=== PATIENT | male | born 1945 | race Caucasian/White ===

== ENCOUNTER → 2017-03-06 | Outpatient (CLI) | payer OTHER ==
[~2017-03-06] MED LIST: AZACTAM2 GM IV; CALCIUM; CALCIUM 500 +1 EAC5 PO; DEPO-TESTOS200 MG/M1 IM; DITROPAN5 MG PO; DONEPEZIL HCL10 MG PO; DOXYCYCLINE HY100 M3 PO; ELMIRON100 MG PO; FLAX SEED OIL1000 M1 PO; FUROSEMIDE40 MG PO; HYTRIN PO; KCL PO; LINZESS145 MCG PO; LOPID600 MG PO; LOPRESSOR PO; LOTREL 10/40 MG1 CAP PO; MULTI VITAMIN1 EACH PO; NABUMETONE PO; NAMENDA10 MG PO; NASONEX17 GM; NEURONTIN300 MG PO; OMEPRAZOLE20 M1 PO; OXYCODONE HCL10 MG PO; PERCOCET 10/31 UDTA1 PO; PERCOCET5/325 PO; POTASSIUM; RA ONE DAILY M1 EACH PO; ROPINIROLE HCL1 MG PO; SYNTHROID137 MCG PO; TEMAZEPAM30 MG PO; TIZANIDINE HCL4 M1 PO; TRAMADOL HCL50 M2 PO; TRIAMTERENE-HC1 EACH PO; VANCO 1.751.75 GM/25 IV; VITAMIN D31000 UNIT PO
--- NOTE | ~2017-03-06 | MR165 ---
[facility] A Service of [facility] RADIOLOGY TEXT RESULTS PATIENT: OPAL DE LUNA [facility] UNIT #: [id number] AGE: [address]: Justin Velasquez MD SEX: M ORDER DR: [id number] [facility] [address] [facility] [address] [place], [place] [address] [id number] MR#: [id number] #: [id number] NAME: OPAL DE LUNA : 1945 SEX: M STUDY DATE/TIME: 03/06/2017 12:15 UNIT: [facility] ROOM: STUDY DESCRIPTION: MR Shoulder Wo Contrast Rt Attending Physician: Justin Velasquez M.D. Referring Physician: Justin Velasquez M.D. Ordering Physician: Justin Velasquez M.D. Primary Care Physician: Isaías Mackey M.D. MRI CENTER REPORT This report is preliminary unless electronic signature is present. EXAM MRI of the right shoulder HISTORY 71-year-old male right shoulder pain for over 10 years. No specific trauma. Painful to move in all directions. History of left shoulder replacement, left hip replacement, right knee replacement. FINDINGS Multiplanar multiecho imaging was performed of the right shoulder utilizing a high field magnet and dedicated protocol. There is [id number] AC joint arthropathy with distal clavicular and periarticular edema consistent with an active inflammatory component. Marrow signal within the proximal humerus and glenoid are unremarkable except for enthesopathic or degenerative cyst at the cuff insertion. Joint fluid within normal limits. There is moderate diffuse supraspinatus and infraspinatus tendinopathy with intratendinous cyst seen along the posterior margin of the supraspinatus tendon at the myotendinous junction and also along the posterior aspect of the infraspinatus tendon at the myotendinous junction. These intratendinous cysts are frequently associated with underlying cup pathology. Teres minor tendon appears intact. The subscapularis tendon demonstrates tendinopathy and a partial-thickness articular-sided tear estimated about 9.0 mm in length and involving about 50% of the thickness of the tendon. This is superimposed on mild tendinopathy. No muscle atrophy. There is a small amount of edema along the posterior inferior aspect of the infraspinatus muscle. Superior labrum demonstrates degeneration but no defined tear. The biceps anchor appears intact. The long tendon of the biceps appears intact. Anterior and posterior labrum and extraarticular soft tissues unremarkable. [facility] A Service of [facility] RADIOLOGY TEXT RESULTS PATIENT: OPAL DE LUNA LOCATION: [facility] : 43 UNIT #: [id number] AGE: [address]: Justin Velasquez MD SEX: M ORDER DR: IMPRESSION 1. Moderate diffuse supraspinatus and infraspinatus tendinopathy with intratendinous cysts as detailed above. 2. Partial-thickness articular sided tear of the subscapularis tendon. This is superimposed on mild tendinopathy. 3. Nonspecific edema along the muscle belly of the infraspinatus could be related to muscle strain. 4. Moderate AC joint arthropathy with some periarticular edema which may imply active inflammation. Dictated by... Deya Mackey M.D. THIS IS AN ELECTRONICALLY VERIFIED REPORT Deya Mackey M.D. at 03/06/2017 4:49 PM Prosper TD: 03/06/2017 14:09 JOB #: [id number] MRI CENTER REPORT Page 1 of 1 COPY
== END | disposition home or self-care (01) ==
LOC: CMRI 11:38
DX: M25.511 Pain in right shoulder (principal); M75.81 Other shoulder lesions, right shoulder; M67.813 Other specified disorders of tendon, right shoulder; S46.011A Strain of muscle(s) and tendon(s) of the rotator cuff of right shoulder, initial encounter; M19.011 Primary osteoarthritis, right shoulder; R60.0 Localized edema
CPT/HCPCS: 73221